=== PATIENT | male | born 1950 | race African-American/Black ===

== ENCOUNTER 2025-06-25 00:53 | Emergency (ER) | payer MEDICARE, MEDICAID ==
[~2025-06-25] VITALS: Ht 175.3 cm; Wt 53.0 kg
[2025-06-25 01:06] VITALS: O2SAT 97
[2025-06-25] MEDS ORDERED: TAMS-54 MT (01:19)
[2025-06-25] MEDS ORDERED: MIRT-90 MT (01:19)
[2025-06-25] MEDS ORDERED: FINA5TAB11 PO (01:19)
[2025-06-25] MEDS: IBUPROFEN 600MG TABLET PO ONE (03:16)
[2025-06-25] MEDS: LIDOCAINE 5% PATCH TOP STA (03:16)
[2025-06-25] MEDS: CYCLOBENZAPRINE 10MG TABLET PO ONE (03:16)
[2025-06-25] MEDS ORDERED: CYCL5TAB3 MT (04:37)
[2025-06-25] MEDS ORDERED: IBUP-1455 MT (04:37)
[2025-06-25] MEDS ORDERED: LIDO700A30 TP (04:37)
[2025-06-25 04:47] VITALS: BP 153/82; PULSE 77; RESP 18; TEMP 36.9; O2SAT 97
== END 2025-06-25 04:47 | disposition home or self-care (01) ==
LOC: ER 00:53
DX: M54.2 Cervicalgia (principal); M25.512 Pain in left shoulder; M79.622 Pain in left upper arm; Z79.899 Other long term (current) drug therapy
CPT/HCPCS: 99284